=== PATIENT | male | born 2000 | race Caucasian/White ===

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

== ENCOUNTER 2022-10-05 12:30 | Emergency (ER) | payer OTHER ==
[~2022-10-05] VITALS: Ht 172.7 cm; Wt 68.0 kg
[2022-10-05] MEDS ORDERED: BUPRENORPHINE 8MG SL TABLET SL ONE (13:00)
[2022-10-05 13:03] VITALS: BP 142/96
== END 2022-10-05 13:29 | disposition home or self-care (01) ==
LOC: ER 12:30
DX: F11.23 Opioid dependence with withdrawal (principal); F15.10 Other stimulant abuse, uncomplicated
CPT/HCPCS: 99283; Z7610